=== PATIENT | female | born 1950 | race Caucasian/White ===

== ENCOUNTER 2019-09-19 09:17 | Day surgery (SDC) | payer MEDICAID ==
[~2019-09-19] VITALS: Ht 157.5 cm; Wt 123.6 kg
[~2019-09-19 09:17] MED LIST: ASPI-556 PO; ATOR40TA28 PO; COMBIH IH; FURO20 PO; HYD25 PO; LEVO150 PO; LOSA50TA37 PO; METF-444 PO; MONT10TA21 PO; OXYB5 PO; SODIUM CHLORIDE 0.9% 1,000 ML IV ONE; SODIUM CHLORIDE 0.9% 1,000 ML ONE
[2019-09-19] MEDS ORDERED: LIDOCAINE/PF 2% 5 ML VIAL IM ONE (09:18)
[2019-09-19] MEDS ORDERED: PROPOFOL 1% 20 ML VIAL IVP ONE (09:18)
[2019-09-19 10:11] LABS: GLUCOMETER DEV NAME(LOC) SDS.; GLUCOSE,POINT OF CARE 61 MG/DL (70-110)
[2019-09-19] MEDS ORDERED: DEXTROSE 5%-0.9% SODIUM CHL 1,000 ML IV ONE (10:50)
[2019-09-19 12:10] LABS: GLUCOMETER DEV NAME(LOC) SDS.; GLUCOSE,POINT OF CARE 83 MG/DL (70-110)
== END 2019-09-19 12:40 | disposition home or self-care (01) ==
LOC: SURGERY 09:17
PROVIDERS: ATTEND Internal Medicine Gastroenterology
DX: D12.2 Benign neoplasm of ascending colon (principal); K59.00 Constipation, unspecified; K57.30 Diverticulosis of large intestine without perforation or abscess without bleeding; K64.8 Other hemorrhoids; Z11.59 Encounter for screening for other viral diseases
CPT/HCPCS: 45385; 82962; 88305; 93005; C1769; J2704; J3490; J7030; J7042; U0003